=== PATIENT | male | born 1995 | race Caucasian/White ===

== ENCOUNTER → 2025-06-01 | Emergency (ER) | payer MEDICAID ==
[~2025-06-01] VITALS: Ht 165.1 cm; Wt 69.0 kg
[~2025-06-01] MED LIST: UNABLE TO OBTAIN
[2025-06-01] MEDS: naloxone 2mg/2ml inj IV STA (17:37)
[2025-06-01] MEDS: naloxone 2mg/2ml inj ONE (17:38)
--- NOTE | 2025-06-01 17:47 | Physician Documentation ---
History of Present Illness General Chief Complaint: Overdose Stated Complaint: OD Time Seen by MD: 17:42 Primary Medical Doctor: NONE History of Present Illness Initial Comments 30-year-old male found in [facility] bathroom after reportedly injecting himself and the penis with the fentanyl. The patient was brought in to the emergency department and became nonverbal. The patient was given a dose of Narcan while he was in has been in the emergency department he has a awoke and he admits to injecting himself with a fentanyl. Medication Reconciliation Allergies: Coded Allergies: No Known Allergies (Unverified , 09/24/09) Miscellaneous Medications Unable to Obtain Medications (Unable to Obtain Medications), (Reported) Past Medical History Past Medical History: No Pertinent History, Asthma Past Surgical History: no surgical history Smoking: Non-Smoker Alcohol Use: None Drug Use: none Lives with: Mother Lives In: Home Physical Exam Physical Exam Vital Signs: Temperature: 98.0, Source: Oral, Heart Rate: 74, Respiratory Rate: 14, BP: 123/86, Pulse Oximetry: 100, Weight: 69.000 Oxygen Flow Rate: 0 Physical Exam VITALS: Reviewed and as above. GENERAL: Alert, no apparent distress. HEENT: Normocephalic, atraumatic, PERRL, EOMI, dry mucosa, no erythema RESPIRATORY: Lungs clear, normal breath sounds, no respiratory distress. CHEST: No accessory muscle use, no retractions CV: Regular rate, rhythm, no edema, no murmur, No: JVD GI: Soft, non-tender, bowels sounds present, no rebound, guarding, or rigidity BACK: No CVA tenderness, or swelling MUSCULOSKELETAL: No deformities, no edema SKIN: Warm and dry, no rash NEURO: Oriented x4, No motor or sensory deficit PSYCH: Normal mood and affect, no agitation Progress Results/Orders Results/Orders Completed Orders - BALDO CERVANTES MD Ethanol (06/01/25 19:43) BMP (06/01/25 19:43) Medications Received in ER Medications (Trade) Dose Ordered Sig/Mervin Route PRN Reason Start Time Stop Time Status Last Admin Dose Admin (Narcan 2mg/2ml inj) 2 mg ONCE STAT IV 06/01/25 17:34 06/01/25 17:41 DC 06/01/25 17:37 2 MG Vital Signs 06/01/25 06/01/25 06/01/25 06/01/25 17:29 17:54 17:54 19:07 Temp 98.0 Pulse 74 87 Resp 14 18 16 B/P (MAP) 123/86 129/86 (100) Pulse Ox 100 98 O2 Flow Rate 0 0 06/01/25 20:44 Temp 98.0 Pulse 85 Resp 13 B/P (MAP) 107/68 (81) Pulse Ox 98 O2 Flow Rate 0 Laboratory Tests Test 06/01/25 19:55 Sodium Level 143 Potassium Level 4.0 Chloride Level 107 Carbon Dioxide Level 30.1 Anion Gap 6 L Blood Urea Nitrogen 10 Creatinine 0.78 Estimated GFR/1.73 m2 > 90 BUN/Creatinine Ratio 12.8 Glucose Level 111 H Calcium Level 8.4 L Albumin 3.5 Chemistry Comments Ethyl Alcohol Level 254 H Medical Decision Making Additional information obtaine: N/A Findings Patient initially with fentanyl overdose he responded to 2 mg of Narcan Patient also noted to have alcohol intoxication. Patient was monitored in the emergency room for a time until achieving clinical sobriety and passed the road test. He is accompanied by his father. Patient advised to stop doing drugs and responsible drinking habits no evidence of head trauma and he had not feel patient requires CT scan Differential Diagnosis Metabolic encephalopathy, fentanyl intoxication, alcohol intoxication, concussion. Departure Time of Disposition: 17:49 Disposition: 01 HOME / SELF CARE / HOMELESS Impression: Primary Impression: Alcoholic intoxication Qualified Codes: F10.929 - Alcohol use, unspecified with intoxication, unspecified Discharge Instructions: Alcohol Intoxication Additional Instructions: Follow up with PCP for further evaluation and care. Return to the ED with any new or worsening symptoms. Referrals: NO PRIMARY CARE PROVIDER (PCP) Education Educated: Patient Educated regarding: diagnosis, treatment, need for follow up Signature Scribe Signature: Scribed for Baldo Cervantes MD by Thomas Hoyos . 06/01/25 20:56 (discharge only) Attestation: The note accurately reflects work and decisions made by me.Baldo Cervantes MD 06/02/25 01:00 OHLJASON CURIEL MD Jun 01, 2025 17:47 THOMAS DUBOSE Jun 01, 2025 20:56 BALDO CERVANTES MD Jun 02, 2025 01:00
[2025-06-01 20:13] LABS: CREATININE 0.78 MG/DL (0.60-1.10); ETHANOL 254 MG/DL (<10); TOTAL CARBON DIOXIDE 30.1 MMOL/L (24-32); eCRCL 120 ML/MIN; eGFR > 90 ML/MIN
[2025-06-01 20:44] VITALS: BP 107/68; PULSE 85; RESP 13; TEMP 98; O2SAT 98
== END | disposition home or self-care (01) ==
LOC: ER 17:27
DX: F10.129 Alcohol abuse with intoxication, unspecified (principal); Y90.8 Blood alcohol level of 240 mg/100 ml or more
CPT/HCPCS: 36415; 80048; 80320; 96374; 99283; J2312